=== PATIENT | male | born 1940 ===

== ENCOUNTER → 2017-08-09 | Outpatient (CLI) | payer OTHER ==
[~2017-08-09] MED LIST: AMOCLA875 PO; ANTIBIOTIC EYE; ASPI325; ASPI81EC PO; CEPH500 PO; CLOP75 PO; FISH1000 PO; HUMULIN SC; Humulin N100 UNIT/1 SQ; Humulin R500 UNIT/1 SC; INSLIS75I SC; INSN100I SC; INSR10I SC; INSULIN HUMULIN SC; INSULIN SC; LISI5 PO; OMEP20ER PO; OSEL75CA PO; OXYACE5T PO; PRILOSEC; Silvadene20 GM TOP
== END ==
LOC: PLD 11:14 → LAB SHORT 11:14
DX: D18.01 Hemangioma of skin and subcutaneous tissue (principal); L82.1 Other seborrheic keratosis
CPT/HCPCS: 88305

== ENCOUNTER → 2017-10-14 | Outpatient (CLI) | payer OTHER | END | disposition home or self-care (01) | LOC: LAB 10:20 → LAB SHORT 10:20 | DX: E10.51 Type 1 diabetes mellitus with diabetic peripheral angiopathy without gangrene (principal); E10.621 Type 1 diabetes mellitus with foot ulcer; L97.509 Non-pressure chronic ulcer of other part of unspecified foot with unspecified severity | CPT/HCPCS: 87070; 87205 ==

== ENCOUNTER 2018-02-03 15:46 | Emergency (ER) | payer OTHER ==
[~2018-02-03] VITALS: Ht 185.4 cm; Wt 93.0 kg
[~2018-02-03 15:46] MED LIST changes: -ASPI325; +ASPI325 PO; +TURMERIC500 M2 PO
== END 2018-02-03 22:07 | disposition home or self-care (01) ==
LOC: ER 15:46
DX: G89.18 Other acute postprocedural pain (principal); M79.672 Pain in left foot; M79.89 Other specified soft tissue disorders; E11.9 Type 2 diabetes mellitus without complications; Z79.899 Other long term (current) drug therapy; Z79.82 Long term (current) use of aspirin; Z79.4 Long term (current) use of insulin; Z79.01 Long term (current) use of anticoagulants; Z87.891 Personal history of nicotine dependence
CPT/HCPCS: 73630; 93971; 99284-25

== ENCOUNTER → 2018-12-06 | Outpatient (CLI) | payer OTHER ==
[~2018-12-06] MED LIST changes: +ISOD40ER PO; +Lisinopril2.5 MG PO; +METO25ER PO
== END | disposition home or self-care (01) ==
LOC: LAB SHORT 09:18 → PLD 09:18
DX: C44.311 Basal cell carcinoma of skin of nose (principal); C44.219 Basal cell carcinoma of skin of left ear and external auricular canal; L82.1 Other seborrheic keratosis
CPT/HCPCS: 88305

== ENCOUNTER 2019-06-02 09:23 | Day surgery (SDC) | payer OTHER ==
[~2019-06-02] VITALS: Ht 180.3 cm; Wt 96.8 kg
[~2019-06-02 09:23] MED LIST changes: +AMLO10 PO; +ATOR20 PO; +FISH OIL 1,001000 MG PO; +NITR.4SL SL; +Senna S Tablet1 EACH PO
[2019-06-02] MEDS ORDERED: KEYTRUDA100 MG/4 M IV (10:46)
--- NOTE | 2019-06-02 19:09 | NUR ---
PT BROUGHT TO ROOM 16 AFTER PACER WAS PLACED TO RIGHT CHEST WALL, DRESSING IN PLACE WITH SCANT DRAINAGE NOTED, PT IS A/OX3, PLEASANT AND COOPERATIVE WITH CARE, FOLLOWS COMMANDS WELL, AT BEDSIDE, LUNGS ARE CLEAR T/O, HE IS ON R/A, RESP EVEN AND UNLABORED, NO COUGHN NOTED, HRR, TELE IN PLACE RUNNING SR WITH OCC PACED BEATS, NO EDEMA NOTED, PPP+2, CAP REFILL < 3SEC, VS STABLE, AFEBRILE, IV SITE IS CLEAR AND PATENT, BTX4, ABD FLAT SOFT NONTENDER, VOIDS WITHOUT DIFF, SKIN C/W/D, EXCEPT RCW, MAEW, JASPER, CALL LIGHT IN REACH.
--- NOTE | 2019-06-02 20:30 | NUR ---
HS CBG; PCT RACHELLE WENT IN TO ROOM FOR HS CBG AND PATIENT REPORTS HE HAD JUST TAKEN HIS BLOOD GLUCOSE AND IT WAS 289.
--- NOTE | 2019-06-03 00:30 | NUR ---
PATIENT CALLED STAFF TO ROOM TO REPORT BLOOD SUGAR OF 101; BINDING DYER SHERLEY MURPHY GAVE PATIENT ROAST BEEF SANDWICH PER REQUEST. WILL CONTINUE TO MONITOR AND ASSESS UNTIL END OF SHIFT.
--- NOTE | 2019-06-03 01:38 | NUR ---
PATIENT CALLED STAFF TO ROOM TO REPORT BLOOD SUGAR OF 101; CUTTER OUT SHERLEY MURPHY GAVE PATIENT ROAST BEEF SANDWICH PER REQUEST. WILL CONTINUE TO MONITOR AND ASSESS UNTIL END OF SHIFT.
--- NOTE | 2019-06-03 06:43 | NUR ---
a+o but a bit skeptical of the medical profession, monitored own blood sugar, call light in place, bed in low position, up to bathroom on own, uses urinal so able to track i/o, no pain to shoulder with pacer, wore sling whole shift, resting quietly with no s/sx of adverse reactions noted during shift, bed in low position, call light in reach, rm air, saline locked.
--- NOTE | 2019-06-03 08:00 | NUR ---
pt sitting up in bed awake a/ox3, pleasant and cooperative with care, follows commands well, denies pain, or any needs at this time, states he didn't sleep much last night, was concerned about his blood sugar, he will be discharged to home today, his pacer site is clear with no swelling or drainage except the initial scant spots on the dressing. arm sling in place, he is very aware to not lift his arm, no further needs, call light in reach.
[2019-06-03] MEDS ORDERED: Bisoprolol Fumar5 MG PO (11:08)
--- NOTE | 2019-06-03 11:40 | NUR ---
pt was discharged to home, after changed dressing, went over instructions with him and his , he verbalized understanding, he has his appts. set, sling in place, he denies pain to site, is very anxious about his insulin and blood glucose checks, so let him manage them. iv removed intact, no new meds to call in, they say they have all the meds at home, they have all belongings with them, left via wheelchair with psychiatric nursing aide in attendence.
== END 2019-06-03 11:36 | disposition home or self-care (01) ==
LOC: MHTC 09:23 → PCU 13:54 → MHTC 06-03 11:36
DX: I49.5 Sick sinus syndrome (principal); E78.5 Hyperlipidemia, unspecified; I11.9 Hypertensive heart disease without heart failure; E11.22 Type 2 diabetes mellitus with diabetic chronic kidney disease; E11.51 Type 2 diabetes mellitus with diabetic peripheral angiopathy without gangrene; I49.3 Ventricular premature depolarization; I44.0 Atrioventricular block, first degree; I45.10 Unspecified right bundle-branch block; N18.9 Chronic kidney disease, unspecified; I25.10 Atherosclerotic heart disease of native coronary artery without angina pectoris; C34.92 Malignant neoplasm of unspecified part of left bronchus or lung; Z79.4 Long term (current) use of insulin; Z95.1 Presence of aortocoronary bypass graft; Z87.891 Personal history of nicotine dependence; Z88.8 Allergy status to other drugs, medicaments and biological substances; Z79.82 Long term (current) use of aspirin; Z79.899 Other long term (current) drug therapy
CPT/HCPCS: 33208; 71045; 71046; 76937; 82947; 99152; 99153; C1785; C1898; J0690; J1644; J1815; J2250; J3010; J7030; J7040

== ENCOUNTER → 2019-06-13 | Outpatient (CLI) | payer OTHER ==
[~2019-06-13] MED LIST changes: +Bisoprolol Fumar5 MG PO; +KEYTRUDA100 MG/4 M IV
== END ==
LOC: PLD 11:36 → LAB SHORT 11:36
DX: D48.5 Neoplasm of uncertain behavior of skin (principal)
CPT/HCPCS: 88305

== ENCOUNTER 2020-02-14 07:53 | Day surgery (SDC) | payer OTHER ==
[~2020-02-14] VITALS: Ht 188 cm; Wt 88.8 kg
[~2020-02-14 07:53] MED LIST changes: +Aspir 8181 MG PO; +CYCL10 PO; +MULTIVITAMINS1 EAC3 PO; +NOVOLIN 70100 UNIT/4; +NOVOLIN R100 UNIT/2; +SENN187 PO
--- NOTE | 2020-02-14 09:04 | NUR ---
02/14/20 0904 Juanis Morillo PATIENT AND NOTIFIED THAT PRIOR CASE IS RUNNING LONGER THAN SCHEDULED AND HE WILL BE DELAYED. BOTH OF THEM VERBALIZED UNDERSTANDING AND BOTH DENY HAVING ANY NEEDS AT THIS TIME. CALL LIGHT IS AT BEDSIDE WITHIN HIS REACH
== END 2020-02-14 10:33 | disposition home or self-care (01) ==
LOC: ORSCSDS 07:53
PROVIDERS: Orthopaedic Surgery
PROC: 3E0R33Z Introduction of Anti-inflammatory into Spinal Canal, Percutaneous Approach (ICD-10-PCS; principal; 2020-02-14 09:00)
DX: M54.16 Radiculopathy, lumbar region (principal); M48.061 Spinal stenosis, lumbar region without neurogenic claudication; E10.8 Type 1 diabetes mellitus with unspecified complications; E78.5 Hyperlipidemia, unspecified; K21.9 Gastro-esophageal reflux disease without esophagitis; J44.9 Chronic obstructive pulmonary disease, unspecified; I10 Essential (primary) hypertension; Z87.891 Personal history of nicotine dependence; Z79.82 Long term (current) use of aspirin; Z79.4 Long term (current) use of insulin; Z79.899 Other long term (current) drug therapy
CPT/HCPCS: J1040

== ENCOUNTER 2020-04-03 10:49 | Day surgery (SDC) | payer OTHER ==
[~2020-04-03] VITALS: Ht 185.4 cm; Wt 86.4 kg
--- NOTE | 2020-04-03 12:40 | NUR ---
04/03/20 1240 Annia Glover ISOVUE 3ML INJECTED BY SURGEON
== END 2020-04-03 12:58 | disposition home or self-care (01) ==
LOC: ORSCSDS 10:49
PROVIDERS: Orthopaedic Surgery
PROC: 3E0R33Z Introduction of Anti-inflammatory into Spinal Canal, Percutaneous Approach (ICD-10-PCS; principal; 2020-04-03 12:00)
DX: M54.16 Radiculopathy, lumbar region (principal); M54.9 Dorsalgia, unspecified; E10.8 Type 1 diabetes mellitus with unspecified complications; I10 Essential (primary) hypertension; Z79.4 Long term (current) use of insulin; Z79.899 Other long term (current) drug therapy
CPT/HCPCS: 82947; J1040

== ENCOUNTER 2020-06-12 08:23 | Day surgery (SDC) | payer OTHER ==
[~2020-06-12 08:23] MED LIST changes: -MULTIVITAMINS1 EAC3 PO; +MULVITA PO
--- NOTE | 2020-06-12 09:59 | NUR ---
RECIEVED REPORT THEN RECIEVED PATIENT BANDAID IN PLACE ON LOWER BACK DENIES PAIN BP SLIGHTLY ELEVATED WILL MONITOR.
--- NOTE | 2020-06-12 10:43 | NUR ---
Discharge instructions reviewed with patient. Patient verbalizes understanding. Copy given to patient to take home. Patient States Post-Procedure ride home has been arranged. AMBULATED OUT OF UNIT. SENT HOME WITH ALL BELONGINGS
== END 2020-06-12 23:05 | disposition home or self-care (01) ==
LOC: RAD 08:23 → CT 09:00 → RAD 09:00 → CT 06-14 08:00
DX: M47.26 Other spondylosis with radiculopathy, lumbar region (principal); M48.062 Spinal stenosis, lumbar region with neurogenic claudication; C79.51 Secondary malignant neoplasm of bone; C34.12 Malignant neoplasm of upper lobe, left bronchus or lung; E10.9 Type 1 diabetes mellitus without complications; I10 Essential (primary) hypertension; Z92.21 Personal history of antineoplastic chemotherapy; Z87.891 Personal history of nicotine dependence; Z88.8 Allergy status to other drugs, medicaments and biological substances; Z95.1 Presence of aortocoronary bypass graft; Z92.3 Personal history of irradiation; Z79.82 Long term (current) use of aspirin; Z95.0 Presence of cardiac pacemaker
CPT/HCPCS: 62304; 72132; Q9966

== ENCOUNTER 2020-06-16 13:37 | Inpatient (IN) | payer OTHER ==
[~2020-06-16] VITALS: Ht 185.4 cm; Wt 86.0 kg
[2020-06-16 15:02] LABS: BASOPHILS ABSOLUTE AUTO 0.02 K/mm3 (0.00-0.23); BASOPHILS PERCENT AUTO 0 % (0-2); EOSINOPHILS ABSOLUTE AUTO 0.07 K/mm3 (0.00-0.68); EOSINOPHILS PERCENT AUTO 1 % (0-6); Hematocrit 34.6 % (37.0-53.0); Hemoglobin 11.7 g/dL (13.5-17.5); IMMATURE GRAN ABSOLUTE AUTO 0.01 K/mm3 (0.00-0.10); IMMATURE GRAN PERCENT AUTO 0 % (0-1); LYMPHOCYTES ABSOLUTE AUTO 0.57 K/mm3 (0.84-5.20); LYMPHOCYTES PERCENT AUTO 11 % (21-46); MONOCYTES PERCENT AUTO 10 % (4-13); Mean Corpuscular HGB 32.1 pg (26.0-34.0); Mean Corpuscular HGB Conc 33.8 g/dL (31.5-36.5); Mean Corpuscular Volume 95 fL (80-100); Mean Platelet Volume 10.1 fL (9.1-12.4); NEUTROPHILS ABSOLUTE AUTO 4.09 K/mm3 (1.96-9.15); NEUTROPHILS PERCENT AUTO 78 % (41-73); Platelet Count 239 K/mm3 (150-400); RDW Coefficient Variation 13.5 % (11.7-14.2); RDW Standard Deviation 47.3 fL (35.1-46.3); Red Blood Cell Count 3.64 M/mm3 (4.30-5.90); White Blood Cell Count 5.26 K/mm3 (4.00-11.30)
[2020-06-16 15:26] LABS: Alanine Aminotransfer (ALT/SGP 28 U/L (12-78); Albumin, Blood 2.9 g/dL (3.4-5.0); Albumin/Globulin Ratio 0.7 (0.8-1.8); Alk Phos 150 U/L (50-136); Anion Gap 6 mmol/L (6-16); Aspartate Aminotrans (AST/SGOT 15 U/L (12-37); Bilirubin, Total 0.6 mg/dL (0.1-1.0); Blood Urea Nitrogen 31 mg/dL (8-24); Bun/Creatinine Ratio 29.8 (12.0-20.0); CO2, Blood 26 mmol/L (21-32); Calcium, Blood 8.8 mg/dL (8.5-10.1); Chloride, Blood 110 mmol/L (98-108); Creatinine, Blood 1.04 mg/dL (0.60-1.20); Globulin, Blood 4.3 g/dL (2.2-4.0); Glomerular Filtration Rate >60 (60-); Glucose, Blood 284 mg/dL (70-99); Potassium, Blood 4.1 mmol/L (3.5-5.5); Sodium, Blood 142 mmol/L (136-145); Total Protein, Blood 7.2 g/dL (6.4-8.2)
[2020-06-16] MEDS ORDERED: ATOR20 PO (16:38)
[2020-06-16 17:40] LABS: Percent Saturation 23.9 % (20.0-50.0)
--- NOTE | 2020-06-17 03:46 | NUR ---
SHIFT SUMMARY ASSUMED CARE OF PT AT 1900. PT IS A/OX4. HEART SOUNDS REGULAR, LUNG SOUNDS CLEAR. PT INDEPEDNT TO BATHROOM. PT R TOE IS RED AND SWOLLEN. BE DENEIS PAIN DUE TO NEUROPATHY. PT GLUCOSE WAS IN THE 60S, PT GIVEN SNACKS AND INSULIN HELD. PT SLEPT MOST OF THE NIGHT. CALL LIGHT IN REACH, BED IN LOWEST POSITION.
[2020-06-17 04:27] LABS: BASOPHILS ABSOLUTE AUTO 0.03 K/mm3 (0.00-0.23); BASOPHILS PERCENT AUTO 1 % (0-2); EOSINOPHILS ABSOLUTE AUTO 0.16 K/mm3 (0.00-0.68); EOSINOPHILS PERCENT AUTO 4 % (0-6); Hematocrit 32.5 % (37.0-53.0); Hemoglobin 10.8 g/dL (13.5-17.5); IMMATURE GRAN ABSOLUTE AUTO 0.01 K/mm3 (0.00-0.10); IMMATURE GRAN PERCENT AUTO 0 % (0-1); LYMPHOCYTES ABSOLUTE AUTO 0.65 K/mm3 (0.84-5.20); LYMPHOCYTES PERCENT AUTO 16 % (21-46); MONOCYTES ABSOLUTE AUTO 0.47 K/mm3 (0.16-1.47); MONOCYTES PERCENT AUTO 12 % (4-13); Mean Corpuscular HGB 31.7 pg (26.0-34.0); Mean Corpuscular HGB Conc 33.2 g/dL (31.5-36.5); Mean Corpuscular Volume 95 fL (80-100); Mean Platelet Volume 9.9 fL (9.1-12.4); NEUTROPHILS ABSOLUTE AUTO 2.65 K/mm3 (1.96-9.15); NEUTROPHILS PERCENT AUTO 67 % (41-73); Platelet Count 230 K/mm3 (150-400); RDW Coefficient Variation 13.4 % (11.7-14.2); RDW Standard Deviation 47.4 fL (35.1-46.3); Red Blood Cell Count 3.41 M/mm3 (4.30-5.90); White Blood Cell Count 3.97 K/mm3 (4.00-11.30)
[2020-06-17 04:43] LABS: Anion Gap 4 mmol/L (6-16); Blood Urea Nitrogen 27 mg/dL (8-24); Bun/Creatinine Ratio 28.9 (12.0-20.0); CO2, Blood 27 mmol/L (21-32); Calcium, Blood 8.6 mg/dL (8.5-10.1); Chloride, Blood 112 mmol/L (98-108); Creatinine, Blood 0.93 mg/dL (0.60-1.20); Glomerular Filtration Rate >60 (60-); Glucose, Blood 137 mg/dL (70-99); Potassium, Blood 3.8 mmol/L (3.5-5.5); Sodium, Blood 143 mmol/L (136-145)
--- NOTE | 2020-06-17 18:02 | NUR ---
PT AOX4 AND COOEPRATIVE OF CARE. PT'S R TOE IS SWOLLEN, BUT PT DENIES PAIN. PT IS INDEPENDENT IN ROOM AND PLEASANT. PT CALLS APPROPRIATELY AND CALL LIGHT IS WITHIN REACH. WILL CONTINUE TO MONITOR.
[2020-06-18 04:21] LABS: Hematocrit 34.5 % (37.0-53.0); Hemoglobin 11.7 g/dL (13.5-17.5); Mean Corpuscular HGB 32.2 pg (26.0-34.0); Mean Corpuscular HGB Conc 33.9 g/dL (31.5-36.5); Mean Corpuscular Volume 95 fL (80-100); Mean Platelet Volume 9.9 fL (9.1-12.4); Platelet Count 249 K/mm3 (150-400); RDW Coefficient Variation 13.2 % (11.7-14.2); RDW Standard Deviation 46.6 fL (35.1-46.3); Red Blood Cell Count 3.63 M/mm3 (4.30-5.90); White Blood Cell Count 4.91 K/mm3 (4.00-11.30)
--- NOTE | 2020-06-18 04:32 | NUR ---
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 FULL CODE. AN ARTERIAL STUDY WAS PERFORMED TO SEE IF OTHER INTERVENTIONS SHOULD PROCEED. IF NONE ARE INDICATED, THE PLAN IS FOR DC TODAY AND CONSULT PHYSICIAN OFFICE ASSISTANT OUTPT. THIS PT HAS LUNG CANCER W/METS, HE SEES DR YUSUF. HE DOES HAVE A PACEMAKER. HE IS INDEPENDENT IN THE ROOM.
[2020-06-18 04:40] LABS: Albumin, Blood 2.6 g/dL (3.4-5.0); Anion Gap 6 mmol/L (6-16); Blood Urea Nitrogen 30 mg/dL (8-24); Bun/Creatinine Ratio 27.5 (12.0-20.0); CO2, Blood 24 mmol/L (21-32); Calcium, Blood 8.3 mg/dL (8.5-10.1); Chloride, Blood 106 mmol/L (98-108); Creatinine, Blood 1.09 mg/dL (0.60-1.20); Glomerular Filtration Rate >60 (60-); Glucose, Blood 291 mg/dL (70-99); Phosphorus, Blood 2.3 mg/dL (2.5-4.9); Potassium, Blood 4.4 mmol/L (3.5-5.5); Sodium, Blood 136 mmol/L (136-145); Vancomycin, Trough 16.2 ug/mL (5.0-10.0)
[2020-06-18] MEDS ORDERED: CEPH500 PO (10:51)
[2020-06-18] MEDS ORDERED: VISBIOME 112.51 EACH PO (10:51)
--- NOTE | 2020-06-18 11:20 | NUR ---
YESTERDAY THIS COUNTER INTELLIGENCE TRIED TO GET PODIATRY CONSULT. WE DO NOT HAVE A BUTT TRIMMER THIS WEEK TO SEE PT'S AND NO ONE IS COVERING FOR THEM.
--- NOTE | 2020-06-18 12:47 | NUR ---
PT DISCHARGED WITH TO TRANSPORT. PT HAD ALL PAPER WORK REVIEWED AND FOLLOW UP SCHEDULED. PT AOX4 AND COOPERATIVE OF CARE. R GREAT TOE HAS IMPROVED NOT RED IN COLOR. PT WILL FOLLOW UP WITH DR CHOWDHURY OUT PT. ALL PERSONAL BELONING COLLECTED AND PT ESCORTED OUT VIA WHEELCHAIR TO N ENTRANCE.
== END 2020-06-18 11:47 | disposition home or self-care (01) | DRG 638 ==
LOC: ER 13:37 → MEDS 17:56
PROVIDERS: Emergency Medicine; Internal Medicine; Pharmacist; ADMIT Internal Medicine
DX: E11.628 Type 2 diabetes mellitus with other skin complications (principal); L03.115 Cellulitis of right lower limb; M86.8X7 Other osteomyelitis, ankle and foot; C78.00 Secondary malignant neoplasm of unspecified lung; E11.69 Type 2 diabetes mellitus with other specified complication; E11.51 Type 2 diabetes mellitus with diabetic peripheral angiopathy without gangrene; I10 Essential (primary) hypertension; I25.10 Atherosclerotic heart disease of native coronary artery without angina pectoris; I73.9 Peripheral vascular disease, unspecified; Z87.891 Personal history of nicotine dependence; Z95.0 Presence of cardiac pacemaker; Z95.1 Presence of aortocoronary bypass graft; Z89.412 Acquired absence of left great toe; Z90.2 Acquired absence of lung [part of]
CPT/HCPCS: 36415; 73620; 80048; 80053; 80069; 80202; 82728; 82947; 83036; 83540; 83550; 83605; 85025; 85027; 85651; 86140; 87040; 93926; 96365; 96367; 96375; 99285-25; A9270; J0692; J1650; J1815; J2405; J3370; J7050

== ENCOUNTER → 2020-07-08 | Outpatient (CLI) | payer OTHER ==
[~2020-07-08] MED LIST changes: +VISBIOME 112.51 EACH PO
== END ==
LOC: LAB SHORT 09:38 → LAB 09:38
DX: E11.621 Type 2 diabetes mellitus with foot ulcer (principal); E11.52 Type 2 diabetes mellitus with diabetic peripheral angiopathy with gangrene; L97.514 Non-pressure chronic ulcer of other part of right foot with necrosis of bone; I96 Gangrene, not elsewhere classified; M86.9 Osteomyelitis, unspecified; L03.031 Cellulitis of right toe; Z88.8 Allergy status to other drugs, medicaments and biological substances; Z89.421 Acquired absence of other right toe(s)
CPT/HCPCS: 88305

== ENCOUNTER → 2020-09-09 | Outpatient (CLI) | payer OTHER | END | disposition home or self-care (01) | LOC: LAB SHORT 10:02 → PLD 10:02 | DX: M86.171 Other acute osteomyelitis, right ankle and foot (principal); L03.031 Cellulitis of right toe; I96 Gangrene, not elsewhere classified; Z89.421 Acquired absence of other right toe(s) | CPT/HCPCS: 87070; 87205; 88305; 88311 ==

== ENCOUNTER → 2022-02-05 | Outpatient (CLI) | payer OTHER | END | disposition home or self-care (01) | LOC: LAB 10:50 → LAB SHORT 10:50 | DX: E11.42 Type 2 diabetes mellitus with diabetic polyneuropathy (principal) | CPT/HCPCS: 87070; 87075; 87077; 87186; 87205 ==

== ENCOUNTER → 2022-02-25 | Outpatient (CLI) | payer OTHER | LOC: LAB 15:03 → LAB SHORT 15:03 | DX: E11.42 Type 2 diabetes mellitus with diabetic polyneuropathy (principal) | CPT/HCPCS: 87070; 87075; 87076; 87205 ==

== ENCOUNTER → 2022-11-11 | Outpatient (CLI) | payer OTHER | END | disposition home or self-care (01) | LOC: PLD 14:45 → LAB SHORT 14:45 | DX: C44.612 Basal cell carcinoma of skin of right upper limb, including shoulder (principal) | CPT/HCPCS: 88304 ==

== ENCOUNTER → 2022-12-03 | Outpatient (CLI) | payer OTHER | LOC: LAB SHORT 15:07 → LAB 15:07 | DX: D23.61 Other benign neoplasm of skin of right upper limb, including shoulder (principal) | CPT/HCPCS: 88305 ==

== ENCOUNTER 2023-01-21 09:40 | Observation (INO) | payer OTHER ==
[~2023-01-21] VITALS: Ht 185.4 cm; Wt 81.7 kg
[~2023-01-21 09:40] MED LIST changes: +DAILY-VITE1 EAC1 PO; -MULVITA PO; -NOVOLIN R100 UNIT/2; +NOVOLIN R100 UNIT/2 SC
[2023-01-21 10:39] LABS: BASOPHILS ABSOLUTE AUTO 0.03 K/mm3 (0.00-0.23); BASOPHILS PERCENT AUTO 0 % (0-2); EOSINOPHILS PERCENT AUTO 0 % (0-6); Hematocrit 34.9 % (37.0-53.0); Hemoglobin 11.9 g/dL (13.5-17.5); IMMATURE GRAN ABSOLUTE AUTO 0.06 K/mm3 (0.00-0.10); IMMATURE GRAN PERCENT AUTO 1 % (0-1); LYMPHOCYTES ABSOLUTE AUTO 0.47 K/mm3 (0.84-5.20); LYMPHOCYTES PERCENT AUTO 4 % (21-46); MONOCYTES ABSOLUTE AUTO 0.89 K/mm3 (0.16-1.47); MONOCYTES PERCENT AUTO 7 % (4-13); Mean Corpuscular HGB 31.6 pg (26.0-34.0); Mean Corpuscular HGB Conc 34.1 g/dL (31.5-36.5); Mean Corpuscular Volume 93 fL (80-100); Mean Platelet Volume 10.5 fL (9.1-12.4); NEUTROPHILS ABSOLUTE AUTO 10.59 K/mm3 (1.96-9.15); NEUTROPHILS PERCENT AUTO 88 % (41-73); Platelet Count 297 K/mm3 (150-400); RDW Coefficient Variation 13.5 % (11.7-14.2); RDW Standard Deviation 45.8 fL (35.1-46.3); Red Blood Cell Count 3.77 M/mm3 (4.30-5.90); White Blood Cell Count 12.04 K/mm3 (4.00-11.30)
[2023-01-21 11:17] LABS: Albumin/Globulin Ratio 0.6 (0.8-1.8); Bilirubin, Total 0.6 mg/dL (0.1-1.0); Bun/Creatinine Ratio 32.8 (12.0-20.0); Calcium, Blood 9.1 mg/dL (8.5-10.1); Creatinine, Blood 1.25 mg/dL (0.60-1.20); Globulin, Blood 4.8 g/dL (2.2-4.0); Potassium, Blood 5.6 mmol/L (3.5-5.5); Total Protein, Blood 7.8 g/dL (6.4-8.2)
[2023-01-21] MEDS ORDERED: ASSURE PLATINU1 EAC2 MC (12:00)
[2023-01-21 13:49] VITALS: BP 177/67
--- NOTE | 2023-01-21 14:22 | NUR ---
ADMIT PT REPORT RECEIVED FROM CALLIE CARRANZA IN ER. PT ARRIVED VIA GURNEY ACCOMAPNIED BY FAMILY. PT WEAK AND UNASTEADY UPON TRANSFER TO BED. 1 ASSIST. ASSISTED IN CHANGING INTO GOWN AND TAKING OFF PANTS.DURING MEDICATION RECONCILATION PT UNABLE TO GIVE A CLEAR IDEA OF INSULIN DOSEAGES OF EITHER NPH OR REGULAR. DR LUJAN AWARE. CONTINUE POC,
[2023-01-21 16:14] VITALS: BP 181/68
--- NOTE | 2023-01-21 17:58 | NUR ---
EVENING NOTE PER DR LUJAN REQUEST. ATTEMPTED MULTIPLE TIMES TO CALL THE [facility] TO REQUEST MEDICATION CLARIFICATION ON INSULIN. UNABLE TO REACH ANYONE IN THE PHARAMCY. VSS. PT AGREEABLE TO THE INSULING REGIME THAT DR LUJAN PERSCRIBED. CBG ELEVATED. PT EXPRESSED THAT HIS STOMACH FELT BETTER. PROTONIX SEEMS TO HAVE HELPED. VOICE STILL WEAK AND ROUGH. HE GRIMMICES WITH SWALLOWING. PROVIDED ORAL YONKER FOR SECRETIONS IF HE FELT HE COULD NOT SWALLOW HIS SALIVA. PT HAS DENIED PAIN OR DISCOMFORT OTHER THAN NAUSEA. HE HAS BEEN SUCKING ON ICE CHIPS. TOLERATING OK. IVF INFUSING PER ORDER RIGHT FA IV. VOIDED X1. DARK, TORI URINE. FAMILY AT BEDSIDE. CONTINUE POC.
[2023-01-21 19:47] VITALS: BP 185/62
[2023-01-21 20:07] LABS: Hemoglobin 11.6 g/dL (13.5-17.5)
--- NOTE | 2023-01-22 03:56 | NUR ---
SHIFT SUMMERY, PT RESTING IN BED, PT ABLE TO SLEEP MOST OF THE NIGHT. PT CALLING WHEN HE HAS NEEDS. CALL LIGHT IN REACH.
[2023-01-22 05:31] LABS: BASOPHILS ABSOLUTE AUTO 0.02 K/mm3 (0.00-0.23); BASOPHILS PERCENT AUTO 0 % (0-2); EOSINOPHILS ABSOLUTE AUTO 0.01 K/mm3 (0.00-0.68); EOSINOPHILS PERCENT AUTO 0 % (0-6); Hematocrit 33.1 % (37.0-53.0); Hemoglobin 11.4 g/dL (13.5-17.5); IMMATURE GRAN ABSOLUTE AUTO 0.01 K/mm3 (0.00-0.10); IMMATURE GRAN PERCENT AUTO 0 % (0-1); LYMPHOCYTES ABSOLUTE AUTO 0.29 K/mm3 (0.84-5.20); LYMPHOCYTES PERCENT AUTO 4 % (21-46); MONOCYTES ABSOLUTE AUTO 0.74 K/mm3 (0.16-1.47); MONOCYTES PERCENT AUTO 11 % (4-13); Mean Corpuscular HGB 31.9 pg (26.0-34.0); Mean Corpuscular HGB Conc 34.4 g/dL (31.5-36.5); Mean Corpuscular Volume 93 fL (80-100); Mean Platelet Volume 10.4 fL (9.1-12.4); NEUTROPHILS ABSOLUTE AUTO 5.73 K/mm3 (1.96-9.15); NEUTROPHILS PERCENT AUTO 84 % (41-73); Platelet Count 258 K/mm3 (150-400); RDW Coefficient Variation 13.7 % (11.7-14.2); RDW Standard Deviation 46.4 fL (35.1-46.3); Red Blood Cell Count 3.57 M/mm3 (4.30-5.90)
[2023-01-22 05:33] VITALS: BP 179/73
[2023-01-22 05:51] LABS: Bun/Creatinine Ratio 30.7 (12.0-20.0); Calcium, Blood 8.3 mg/dL (8.5-10.1); Creatinine, Blood 1.14 mg/dL (0.60-1.20)
[2023-01-22 08:02] VITALS: BP 193/66
[2023-01-22] MEDS ORDERED: OMEP20ER PO (12:52)
[2023-01-22] MEDS ORDERED: NYST237S MT (12:54)
[2023-01-22] MEDS ORDERED: INSULIN GL100 UNIT/2 SC (13:00)
[2023-01-22 13:13] VITALS: BP 163/66
--- NOTE | 2023-01-22 15:40 | NUR ---
PT RESTING QUIETLY AT START OF SHIFT. WOKE EASILY FOR CARE. IVF'S INFUSING PER EMAR. PT'S HERE EARLY AT BS. DR LUJAN IN TO SEE PT AND DISCUSS PLAN OF CARE. PT STILL HAVING DIFFICULTY SWALLOWING D/T RADIATION TX'S FOR CANCER. PT NO LONGER HAVING NAUSEA OR EMESIS. D/C INSTRUCTIONS PLACED. MEDS FAXED TO [facility], PER PT REQUEST. D/C INSTRUCTIONS REVIEWED WITH PT AND . PT TO F/U WITH PCP AND OBTAIN REFERRAL FOR GI CONSULT. REPORTED THAT THEY WOULD DISCUSS IT WITH PCP. BP SHOWING ELEVATED AT START OF SHIFT. BP MEDS GIVEN PER EMAR. BP MARY DONE WITH SOME IMPROVEMENT. BP HAD BEEN TAKE ON LFA WITH WRONG CUFF; RETAKE DONE WITH RIGHT CUFF AND ON UPPER ARM SHOWING IMPROVEMENT. DECLINED ANY FURTHER BP MEDICATION. IV SITE D/C'D WNL'S. PT ABLE TO DRESS HIMSELF WITH ASSIST FROM . PT ASSISTED OUT TO 'S CAR VIA W/C BY FUNERAL SERVICE PRACTITIONER/EMBALMER. BELONGINGS TAKEN OUT BY .
== END 2023-01-22 13:44 | disposition hospice, home (50) ==
LOC: ER 09:40 → MEDS 09:41 → ENPENDDIS 01-22 09:57 → MEDS 01-22 13:44
PROVIDERS: Physician Assistant; ADMIT Family Medicine
DX: K92.0 Hematemesis (principal); R13.10 Dysphagia, unspecified; D72.829 Elevated white blood cell count, unspecified; D63.8 Anemia in other chronic diseases classified elsewhere; C34.90 Malignant neoplasm of unspecified part of unspecified bronchus or lung; C79.9 Secondary malignant neoplasm of unspecified site; E87.1 Hypo-osmolality and hyponatremia; E11.9 Type 2 diabetes mellitus without complications; Z79.4 Long term (current) use of insulin; I25.10 Atherosclerotic heart disease of native coronary artery without angina pectoris; E11.51 Type 2 diabetes mellitus with diabetic peripheral angiopathy without gangrene; Z79.82 Long term (current) use of aspirin
CPT/HCPCS: 36415; 80048; 80053; 82272; 82947; 84132; 85014; 85018; 85025; 96361; 96374; 96376; 99284-25; A9270; C9113; G0378; J1815; J2405; J7030; J7120